=== PATIENT | female | born 1980 | race Caucasian/White ===

== ENCOUNTER 2018-12-03 20:22 | Observation (INO) ==
[2018-12-03] MEDS ORDERED: DUONEB NEB STA ×2 (20:27→22:57)
--- NOTE | 2018-12-03 20:27 | ED.PDOC ---
General ED Provider: Dr. TACOS BO Chief Complaint: Shortness of Air Stated Complaint: 38 y old with SOB.Does not take any m3eds at hime,Apparently states she has asthma.Speaks full sentences though.Also mentions a midsternal chest pain.,No established history of angina or meds,wITH BREATHIMH tX PAIN IMPROVES ANS IS GONE, Time Seen by Physician: 20:30 Exam Limitations: No limitations Nursing and Triage Documentation Reviewed and Agree: Yes Does patient meet sepsis criteria?: No System Inflammatory Response Syndrome: Not Applicable Sepsis Protocol: For patient's 13 years and over: Temp is 96.8 and below OR 101 and greater Pulse >90 BPM Resp >20/minute Acutely Altered Mental Status Are patient's symptoms suggestive of a new infection, such as: -Pneumonia -Skin, Soft Tissue -Endocarditis -UTI -Bone, Joint Infection -Implantable Device -Acute Abdominal Infection -Wound Infection -Meningitis -Blood Stream Catheter Infection -Unknown Respiratory Complaint Exam - Asthma Complaint/Exam Onset/Duration: ON/OFFnot going to a doctor for a longer time period Symptoms Are: Still present Timing: Intermittent Initial Severity: Mild Current Severity: Mild Character: Reports: Wheezing Aggravating: Reports: Smoke exposure, Weather change Alleviating: Reports: Steroids, Inhalers, Nebulizers, Rest Associated Signs and Symptoms: Reports: Fever, Labored breathing Related History: Reports: Similar episode Related Surgical History: Reports: None Status Asthmaticus Risk Factors: Reports: Rx non-compliance, Smoke exposure Current Asthma Medication Usage: Yes Recent Antibiotics: No Respiratory Distress: Mild Accessory Muscle Use: No Retractions: Not Present Diminished Breath Sounds: Yes Prolonged Expiratory Phase: Yes Unable to Speak Full Sentences: No (speak full sentences with effort) Fatigue Present: No Differential Diagnoses: Acute Asthma, Bronchitis, COPD Exacerbation Review of Systems - Review Of Systems Constitutional: Reports: No symptoms Eyes: Reports: No symptoms Ears, Nose, Mouth, Throat: Reports: No symptoms Respiratory: Reports: Cough, Short of air, Wheezing Cardiac: Reports: No symptoms GI: Reports: No symptoms : Reports: No symptoms Musculoskeletal: Reports: No symptoms Skin: Reports: No symptoms Neurological: Reports: No symptoms Endocrine: Reports: No symptoms Hematologic/Lymphatic: Reports: No symptoms All Other Systems: Reviewed and Negative Past Medical History - Past Medical History Previously Healthy: Yes Endocrine: Reports: None Cardiovascular: Reports: Other (enlarged heart) Respiratory: Reports: None Hematological: Reports: None Gastrointestinal: Reports: None Genitourinary: Reports: None Neuro/Psych: Reports: None Musculoskeletal: Reports: None Cancer: Reports: None - Surgical History General Surgical History: Reports: - Family History Family History: Reports: Other ( had a vasectomy"i'm not ) - Social History Smoking Status: Never smoker Hx Substance Use: No Alcohol Screening: None Physical Exam - Physical Exam Appearance: Well-appearing Ill-appearing: Mild Pain Distress: None Eyes: RENA, EOMI, Conjunctiva clear ENT: Ears normal, Nose normal, Oropharynx normal Respiratory: Airway patent, Breath sounds diminished, Wheezes Cardiovascular: RRR, Pulses normal, No rub, No murmur, Tachycardia GI/: Soft, Nontender, No masses, Bowel sounds normal, No Organomegaly Musculoskeletal: Normal strength, ROM intact, No edema, No calf tenderness Skin: Warm, Dry, Normal color Neurological: Sensation intact, Motor intact, Reflexes intact, Cranial nerves intact, Alert, Oriented Psychiatric: Affect appropriate Interpretation - Radiology Interpretation Radiology Interpretation By: Radiologist Radiology Results: Positive Exam Interpreted: CXR Xray Comments: ,ground glass opacities and atelec,Poss inflammatory ch.Rocephin 1gm, Radiology Interpretation By: Radiologist Re-Evaluation - Re-Evaluation Time of Re-Evaluation: 22:18 (respiratory function improved air flow and effectoive cough.) Status: Improved Vital Signs Stable: Yes (O2 sat at least 95% to 100%) Pain Level: none Appearance: NAD Lungs: Clear Skin: Warm and Dry Neuro: Alert and Oriented X3 CV: RRR - Re-Evaluation Time of Re-Evaluation: 22:23 Status: Improved Vital Signs Stable: Yes (EKG initial 101bpm NSR optimizes to 87 bpm.) Pain Level: EKG-axis,QRS,T segment all normal. Critical Care Note - Critical Care Note Total Time (mins): 0 Course - Course Hematology/Chemistry: 12/03/18 20:20 12/03/18 20:20 Orders, Labs, Meds: Lab Review 12/03/18 12/03/18 12/03/18 20:20 20:20 20:29 WBC 11.16 H RBC 5.19 Hgb 14.6 Hct 44.9 MCV 86.5 MCH 28.1 MCHC 32.5 RDW Coeff of [place]ma 13.2 Plt Count 244 Immature Gran % (Auto) 0.2 Neut % (Auto) 65.7 Lymph % (Auto) 19.4 [place] % (Auto) 8.2 Eos % (Auto) 6.0 Baso % (Auto) 0.5 Immature Gran # (Auto) 0.0 Neut # (Auto) 7.3 H Lymph # (Auto) 2.2 [place] # (Auto) 0.9 Eos # (Auto) 0.7 Baso # (Auto) 0.1 Puncture Site Lb O2 Saturation 93.0 L ABG pH 7.369 ABG pCO2 41.8 ABG pO2 68.0 L ABG HCO3 24.1 ABG Total CO2 25 ABG Base Excess -1 Alfa Test + FiO2 % 21.0 Sodium 139.9 Potassium 4.23 Chloride 102.2 Carbon Dioxide 29.5 Anion Gap 12.43 BUN 15.4 Creatinine 0.80 Estimated GFR (MDRD) 80.00 BUN/Creatinine Ratio 19.25 Glucose 102.4 Calcium 9.01 Total Bilirubin 0.37 AST 26.8 ALT 18.9 Alkaline Phosphatase 102.0 Total Protein 7.66 Albumin 4.64 Globulin 3.02 Albumin/Globulin Ratio 1.53 Urine Color Urine Clarity Urine pH Ur Specific [place] Urine Protein Urine Glucose (UA) Urine Ketones Urine Blood Urine Nitrite Urine Bilirubin Urine Urobilinogen Ur Leukocyte Esterase Urine Microscopic RBC Urine Microscopic WBC Ur Squamous Epith Cells Urine Bacteria 12/03/18 21:30 WBC RBC Hgb Hct MCV MCH MCHC RDW Coeff of [place] Plt Count Immature Gran % (Auto) Neut % (Auto) Lymph % (Auto) [place] % (Auto) Eos % (Auto) Baso % (Auto) Immature Gran # (Auto) Neut # (Auto) Lymph # (Auto) [place] # (Auto) Eos # (Auto) Baso # (Auto) Puncture Site O2 Saturation ABG pH ABG pCO2 ABG pO2 ABG HCO3 ABG Total CO2 ABG Base Excess Alfa Test FiO2 % Sodium Potassium Chloride Carbon Dioxide Anion Gap BUN Creatinine Estimated GFR (MDRD) BUN/Creatinine Ratio Glucose Calcium Total Bilirubin AST ALT Alkaline Phosphatase Total Protein Albumin Globulin Albumin/Globulin Ratio Urine Color Yellow Urine Clarity Clear Urine pH 7.0 Ur Specific [place] 1.020 Urine Protein Negative Urine Glucose (UA) Negative Urine Ketones Trace Urine Blood Trace-intact Urine Nitrite Negative Urine Bilirubin Negative Urine Urobilinogen 0.2 Ur Leukocyte Esterase Negative Urine Microscopic RBC 2-5 Urine Microscopic WBC 5-10 Ur Squamous Epith Cells 10-20 Urine Bacteria 1+ Orders Category Date Time Status ABG DRAW REQUEST Stat CARDIO 12/03/18 20:29 Completed EKG-(ED ONLY) Stat CARDIO 12/03/18 20:33 Completed NEBULIZER TREATMENT Stat CARDIO 12/03/18 20:29 Completed NEBULIZER TREATMENT Stat CARDIO 12/03/18 20:38 Completed PEAK FLOW Routine CARDIO 12/03/18 20:31 Ordered IV [ED IV/MEDIPORT/POWERPORT] .ONCE EMERGENCY 12/03/18 20:30 Active O2 [ED APPLY O2] .ONCE EMERGENCY 12/03/18 20:34 Active ABG Stat LAB 12/03/18 20:29 Completed CBC W/ AUTO DIFF Stat LAB 12/03/18 20:20 Completed COMPREHENSIVE METABOLIC PANEL Stat LAB 12/03/18 20:20 Completed URINALYSIS C & S IF INDICATED Stat LAB 12/03/18 21:30 Completed URINE CULTURE Stat LAB 12/03/18 21:30 Received 0.9 % Sodium Chloride [Saline Flush] MEDS 12/03/18 20:30 Ordered 1 syr IVF PRN PRN Ceftriaxone Sodium [Rocephin] MEDS 12/03/18 22:17 Discontinued 1 gm .ROUTE .STK-MED ONE Ceftriaxone Sodium [Rocephin] 1 gm MEDS 12/03/18 22:14 Ordered 0.9 % Sodium Chloride [Sodium Chloride] 50 ml IV ONCE Ipratropium/Albuterol Neb [Duoneb] MEDS 12/03/18 20:27 Discontinued 1 vial NEB ONCE STA Levalbuterol HCl [Xopenex 1.25 mg] MEDS 12/03/18 20:38 Discontinued 1 vial NEB ONCE STA Methylprednisolone Sod Succ/Pf [Solu-Medrol 125 mg] MEDS 12/03/18 20:42 Discontinued 125 mg IVP ONCE STA Sodium Chloride 0.9% [Sodium Chloride] 1,000 ml MEDS 12/03/18 20:30 Discontinued IV BOLUS CHEST, 1V AP ONLY Stat RADS 12/03/18 20:32 Completed Medications Generic Name Dose Route Start Last Admin Trade Name Freq PRN Reason Stop Dose Admin Ceftriaxone Sodium 1 gm/ 50 mls @ 75 mls/hr 12/03/18 22:14 12/03/18 22:27 Sodium Chloride IV 06/14/19 22:53 75 mls/hr ONCE STA Administration Sodium Chloride 1 syr 12/03/18 20:30 12/03/18 22:27 Saline Flush IVF 1 syr PRN PRN Administration To flush IV Discontinued Medications Generic Name Dose Route Start Last Admin Trade Name Freq PRN Reason Stop Dose Admin Albuterol/Ipratropium 1 vial 12/03/18 20:27 12/03/18 20:30 Duoneb NEB 12/03/18 20:28 1 vial ONCE STA Administration Sodium Chloride 1,000 mls @ 1,000 mls/hr 12/03/18 20:30 12/03/18 20:36 Sodium Chloride IV 12/03/18 21:29 1,000 mls/hr BOLUS STA Administration Levalbuterol HCl 1 vial 12/03/18 20:38 12/03/18 20:46 Xopenex 1.25 Mg NEB 12/03/18 20:39 1 vial ONCE STA Administration Methylprednisolone Sodium Succinate 125 mg 12/03/18 20:42 12/03/18 20:47 Solu-Medrol 125 Mg IVP 12/03/18 20:43 125 mg ONCE STA Administration Vital Signs: Temp Pulse Resp BP Pulse Ox 12/03/18 20:23 99.6 F 118 H 28 H 154/86 H 88 L Departure - Departure Time of Disposition: 22:28 Disposition: HOME SELF-CARE Discharge Problem: Asthma Instructions: How to Use a Metered-Dose Inhaler and a Spacer (ED) Condition: Good Pt referred to PMD for follow-up: Yes IPMP verified?: No Additional Instructions: Zithromax 500 mg PO QD x 5 days.Albuterol inhaler TID 1-2 puffs PRN.Prednisone 40 mg tab QD x 4 days PO, Allergies/Adverse Reactions: Allergies No Known Allergies Allergy (Unverified 12/03/18 20:24) Home Medications: Ambulatory Orders 1 [No Reported Medications] 12/03/18 Disposition Discussed With: Patient, Family
[2018-12-03] MEDS ORDERED: SODIUM CHLORIDE 1,000 ML IV STA (20:30)
[2018-12-03] MEDS ORDERED: XOPENEX 1.25 MG NEB STA (20:38)
[2018-12-03] MEDS ORDERED: SOLU-MEDROL 125 MG IVP STA (20:42)
--- NOTE | 2018-12-03 21:05 | DI ---
Exam: Single view of the chest. Comparison: Chest CT performed 01/27/2018 Reason for exam: Short of breath. FINDINGS: Ground-glass opacities are seen throughout the lungs. No pneumothorax, pleural effusion, or focal consolidation. The imaged osseous structures appear grossly unremarkable without acute frac ture. Impression: Ground-glass opacities seen throughout the lungs. Imaging findings can be seen with inflammation/devante ma. Cannot rule out underlying infectious etiology. No focal air space consolidations are seen.
[2018-12-03] MEDS ORDERED: ROCEPHIN 1 GM in SODIUM CHLORIDE 50 ML IV STA (22:14)
[2018-12-03] MEDS ORDERED: ROCEPHIN ONE (22:17)
[2018-12-04 00:06] LABS: URINE PREGNANCY TEST NEGATIVE (NEGATIVE)
--- NOTE | 2018-12-04 00:59 | CT ---
EXAM: CT pulmonary angiogram. HISTORY: Shortness of breath. Abnormal arterial blood gas. PROCEDURE: After the intravenous injection of contrast a CT pulmonary angiogram was performed with c ontiguous axial CT images of the chest with multiplanar reformats, MIP images and 3-D reformats. FINDINGS: There is motion artifact which limits the exam. There is normal enhancement of the pulmona ry trunk, main right and left pulmonary arteries and lobar pulmonary arteries. There is limited visu alization of the segmental and subsegmental pulmonary arteries secondary to motion artifact and small peripheral pulmonary emboli cannot be excluded. The heart is within normal limits in size. The tho racic aorta is normal in appearance. The mediastinum is normal in appearance. There are right middl e lobe infiltrates and minimal consolidation, suspicious for pneumonia. There is minimal left basila r atelectasis and/or pneumonia. The bones and soft tissues are unremarkable. There are no acute fin dings in the visualized portion of the abdomen. Impression: No evidence of central pulmonary embolism as described. There is limited visualization o f the segmental and subsegmental pulmonary arteries secondary to motion artifact and small peripheral pulmonary emboli cannot be excluded. Right middle lobe infiltrate and minimal consolidation, suspicious for pneumonia. Minimal left basilar atelectasis and/or pneumonia.
[2018-12-04] MEDS ORDERED: DUONEB NEB PRN (01:33)
[2018-12-04 01:55] VITALS: BMI 30.5
[2018-12-04 10:31] VITALS: TEMP 97.6
[2018-12-04 10:32] VITALS: BP 106/70
[2018-12-04] MEDS ORDERED: ZITHROMAX PO STA (13:35)
[2018-12-04] MEDS ORDERED: ZITHROMAX ONE (13:57)
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
== END 2018-12-04 16:02 | disposition home or self-care (01) ==
LOC: ED 20:22 → MEDSURG B 12-04 01:22
PROVIDERS: ADMIT General Practice; ATTEND General Practice
DX: J18.1 Lobar pneumonia, unspecified organism (principal); R07.9 Chest pain, unspecified; R50.9 Fever, unspecified; R06.2 Wheezing; R05 Cough; R06.00 Dyspnea, unspecified; J45.909 Unspecified asthma, uncomplicated; I73.9 Peripheral vascular disease, unspecified
CPT/HCPCS: 36415; 80053; 80306; 81001; 81025; 82550; 82553; 82803; 83605; 83880; 84145; 84484; 85025; 85379; 87086; 87186; 93005; 93010; 94640; 96361; 96365; 96366; 96375; 99285